=== PATIENT | male | born 1945 | race Caucasian/White ===

== ENCOUNTER 2017-12-12 23:17 | Emergency (ER) | payer MEDICARE | END 2017-12-13 01:38 | disposition home or self-care (01) | LOC: D.ER 23:17 | DX: S09.90XA Unspecified injury of head, initial encounter (principal); W01.0XXA Fall on same level from slipping, tripping and stumbling without subsequent striking against object, initial encounter; Y93.89 Activity, other specified; Y92.019 Unspecified place in single-family (private) house as the place of occurrence of the external cause; I10 Essential (primary) hypertension; S02.2XXA Fracture of nasal bones, initial encounter for closed fracture ==

== ENCOUNTER 2020-02-05 20:49 | Observation (INO) | payer OTHER ==
[~2020-02-05] VITALS: Ht 182.9 cm; Wt 92.5 kg
--- NOTE | ~2020-02-05 | EC ---
PATIENT:ELIO OLIVERA DATE OF SERVICE: 02/05/20 SEX: M MEDICAL RECORD: [id number] DATE OF : [birth year] LOCATION:D. D.211 AGE OF PATIENT: 74 ADMISSION DATE: 02/05/20 REFERRING PHYSICIAN: INTERPRETING PHYSICIAN: BE TEMPLE MD ECHOCARDIOGRAM REPORT ECHO CHARGES 4 ECHO COMPLETE Date: 02/06/20 CLINICAL DIAGNOSIS: CP ECHOCARDIOGRAPHIC MEASUREMENTS (adult normal given) AC root (d.<3.7cm) 3.4 cm LV Septum d (<1.2 cm> 0.7 cm Valve Excursion 2.0 cm LV Septum (systole) 1.1 cm Left Atria (s.<4.0cm> 4.0 cm LVPW d(<1.2cm) 1.0 cm RV (d.<2.3cm) 2.4 cm LVPW (sytole) 1.2 cm LV diastole(<5.6CM) 5.3 cm MV E-F(>70mm/sec) cm LV systole 3.8 cm LVOT Diameter 1.5 cm MV exc.(>10mm) cm Est.ejection fraction (50-75%) % DOPPLER: LVIT cm/sec A 88 cm/sec E 58 cm/sec LA cm/sec RVSP 14.8 mmHg LVOT 122 cm/sec AOP1/2T m/s Asc. Ao 130 cm/sec RVOT 88 cm/sec RA cm/sec PA 96 cm/sec AV Gradient Peak 6.8 mmHg AV Mean 4.8 mmHg AV Area 1.5 cm MV Gradient Peak 4.1 mmHg MV Mean 1.9 mmHg MV Area cm COMMENTS: Engineering Librarian: Ulysses AMARO Beater Out: 4 Dr. Temple TAPE# PACS Pericardial Effusion N DATE OF SERVICE: 02/07/2020 PROCEDURE: Transthoracic echocardiogram. FINDINGS: The left ventricle shows mild left ventricular hypertrophy with diastolic dysfunction. The patient's ejection fraction is 55%. The aortic valve is normal. Left atrium appears to be normal, but is not well demonstrated. ECHOCARDIOGRAM REPORT [id number] ELIO OLIVERA Mitral valve is grossly normal. Tricuspid valve is grossly normal. The RVSP appears to be normal. The right ventricle is normal size, shape, structure, and function. Pulmonic valve appears to be normal. TRANSINT:[id number] Voice Confirmation ID: [id number] DOCUMENT ID: [id number] BE TEMPLE MD CC: [id number] DICTATION DATE: 02/08/20 1613 DICTATING MACHINE TYPIST: 02/08/20 2344 DIS IN 02/07/20 [facility] [address] [id number]
--- NOTE | ~2020-02-05 | HEMODYNAMI ---
PATIENT:ELIO OLIVERA MEDICAL RECORD: [id number] : 47 LOCATION[facility] D.[facility] [id number] ADMISSION DATE: 02/05/20 Generatedon:02/06/20209:48 Patient name: ELIO OLIVERA Patient #: [id number] SSN: [id number] : 1945 Date of study: 02/06/2020 Page: Of Hemodynamic Procedure Report Patient Data Patient Demographics Procedure consent was obtained First Name: ELIO Gender: Male Last Name: JAROD : 1945 [facility] Initial: A Age: 74 year(s) Patient #: [id number] Race: SSN: [id number] Additional ID: [id number] Contact details [address]: [address] [place] [address] State: [place] City: [place] Zip code: [address] Admission Admission Data Admission Date: 02/05/2020 Admission Time: 21:47 Admit Source: Other Room #: D.4 Procedure Procedure Types Cath Procedure Diagnostic Procedure LHC LH w/Coronaries Sedation Charges Moderate Sedation up to 15 minutes Procedure Description Procedure Date Procedure Date: 02/06/2020 Procedure Start Time: 9:30 Procedure End Time: 9:44 Procedure Staff Name Function Roberto Carlos Romeo MD Performing Physician Jason Parrish RN Nurse Rachel Wylie RT Scrub Leslie Jasmine RT Monitor Procedure Data Cath Procedure Fluoroscopy Diagnostic fluoroscopy Total fluoroscopy Time: 2.2 time: 2.2 min min Diagnostic fluoroscopy Total fluoroscopy dose: 220 dose: 220 mGy mGy Contrast Material Contrast Material Type Amount (ml) Isovue 300 50 Entry Location Entry Primary Successful Side Size Upsize Upsize Entry Closure Rowe ccessful Closure Location (Fr) 1 (Fr) 2 (Fr) Remarks Device Remarks Radial Right 6 Fr Mechanical artery Short Compression Femoral Right 5 Fr Exoseal artery Estimated blood loss: 5 ml Diagnostic catheters Device Type Used For End Catheter Placement DIAGNOSTIC Decker 110cm 5 Multi-vessel Fr catheter ([id number]) Angiography Procedure Complications No complications Procedure Medications Medication Administration Route Dosage Oxygen etCO2 Nasal cannula 2 l/min Benadryl I.V. 50 mg Lidocaine 2% added to field 20 Heparin Flush Bag added to field 2 bags (1000units/500ml NS) 0.9% NaCl I.V. 100 ml/hr Radial Cocktail I.A. 1 syringe (Verapamil 2mg/Nitro 400mcg/Heparin 1500units) Versed I.V. 1 mg Fentanyl I.V. 50 mcg Versed I.V. 1 mg Hemodynamics Rest Heart Rate: 88 (bpm) Pressure Samples Time Site Value (mmHg) Purpose Heart Use Rate(bpm) 9:39 LV 131/7,12 Snapshot 87 Gradients Valve Time Site Site Mean SEP/DFP Peak To Heart Use 1 2 (mmHg) (sec/min) Peak Rate (mmHg) (bpm) Aortic 9:40 LV AO 87 Snapshots Pre Cath Intra NCS Post Cath Vital Signs Time Heart Resp SPO2 etCO2 NIBP (mmHg) Rhythm Pain Sedation Rate (ipm) (%) (mmHg) Status Level (bpm) 9:23:03 80 21 97 0 150/89(130) NSR 0 (11) 10(A) , No pain 9:27:21 83 16 99 34.5 152/87(129) NSR 0 (11) 10(A) , No pain 9:31:37 86 14 100 36 154/89(126) NSR 0 (11) 9(A) , No pain 9:35:53 86 17 96 32.3 135/82(104) NSR 0 (11) 9(A) , No pain 9:40:07 89 16 96 35.3 149/81(109) NSR 0 (11) 9(A) , No pain 9:44:23 82 13 97 34.5 142/85(109) NSR 0 (11) 10(A) , No pain Medications Time Medication Route Dose Verified Delivered Reason Notes Effectiveness by by 9:22:04 Oxygen etCO2 2 l/min Roberto Carlos Gomez used for Nasal St Arias Parrish RN procedure cannula 9:22:11 Benadryl I.V. 50 mg Roberto Carlos Gomez Per [facility] Arias Parrish RN physician 9:27:11 Lidocaine 2% added 20ml Roberto Carlos Azevedo for local to vial St Arias Romeo anesthetic field MD ZACARIAS 9:27:17 Heparin Flush added 2 bags Roberto Carlos Azevedo used for Bag to [facility] procedure (1000units/500ml field MD ZACARIAS NS) 9:27:26 0.9% NaCl I.V. 100 Roberto Carlos Gomez Per ml/hr St Arias Parrish RN physician 9:27:42 Versed I.V. 1 mg Roberto Carlos Gomez for sedation St Arias Parrish RN, MD 9:27:49 Fentanyl I.V. 50 mcg Roberto Carlos Gomez for sedation St Arias Parrish RN, MD 9:31:35 Radial Cocktail I.A. 1 Roberto Carlos Azevedo for (Verapamil syringe [facility] vasodilation 2mg/Nitro MD ZACARIAS 400mcg/Heparin 1500units) 9:35:10 Versed I.V. 1 mg Roberto Carlos Azevedo for sedation St Arias Romeo MD, MD Procedure Log Time Note 8:57:23 Informed consent obtained and on chart 9:06:10 Jason Parrish RN sent for patient. Start room use. 9:11:47 Admit Source: Other 9:12:07 Procedure Status Urgent Heart Cath (IP). 9:12:20 Time tracking: Regular hours (M-F 7:00 - 5:00) 9:12:28 Plan of Care:Hemodynamics will remain stable., Cardiac rhythm will remain stable., Comfort level will be maintained., Respiratory function will remain adequate., Patient/ family verbilizes understanding of procedure., Procedure tolerated without complication., Recovers from procedure without complications.. 9:12:39 Patient received from Med II to CCL 1 Alert and oriented. Tansferred to table in Supine position. 9:12:41 Warm blankets applied, and jailyn hugger turned on for patient comfort. 9:12:42 Correct patient and procedure confirmed by team. 9:12:42 ECG and BP/O2 sat monitors applied to patient. 9:21:56 Vital chart was started 9:22:04 Oxygen 2 l/min etCO2 Nasal cannula was administered by Jason Parrish RN; used for procedure; Verbal order read back and verified. 9:22:11 Benadryl 50 mg I.V. was administered by Jason Parrish RN; Per physician; Verbal order read back and verified. 9:24:49 H&P Date Dictated: 02/06/2020 New H&P dictated by physician.. 9:24:50 Pre-procedure instructions explained to patient. 9:24:51 Pre-op teaching completed and patient verbalized understanding. 9::53 Family unavailable. 9:24:55 Patient NPO since Midnight. 9::58 Is the patient allergic to Iodine/contrast media? No. 9:24:59 Was the patient premedicated? Yes 9:25:00 Is patient on blood thinner?No 9:25:01 Patient diabetic? No. 9:25:03 Previous problem with sedation/anesthesia? No ? 9:25:05 Snore? No 9:25:06 Sleep apnea? No 9:25:07 Deviated septum? No 9:25:08 Opens mouth fully? Yes 9:25:09 Sticks out tongue? Yes 9:25:16 Airway obstruction? Yes emphysema 9:25:21 Dentures? Yes in tight 9:25:25 Pre procedure: right dorsailis pedis pulse 2+ Normal; easily identifiable; not easily obliterated 9:25:27 Pre procedure: left dorsailis pedis pulse 2+ Normal; easily identifiable; not easily obliterated 9:25:30 Patient pain scale 0/10 ?. 9:25:42 IV patent on arrival in right forearm with 0.9% NaCl at O. 9:25:49 Lab results completed and on chart. 9::53 Right Radial & Right Groin area was prepped with chlora-prep and draped in sterile fashion 9:25:54 Alarms reviewed by R. N. 9::55 Sharps counted by scrub and verified by R.N. 9:25:56 Physician arrived 9::57 --------ALL STOP TIME OUT------ 9:25:58 Final Timeout: patient, procedure, and site verified with staff and physician. All members of the team are in agreement. 9:26:00 Right Radial & Right Groin site verified by team. 9:26:04 Fire Safety Assessment: A--An alcohol-based skin anteseptic being used preoperatively., C--Open oxygen or nitrous oxide is being used., D--An ESU, laser, or fiber-optic light is being used. 9:26:08 Physical assessment completed. ASA score P 2 - A patient with mild systemic disease as per Roberto Carlos Romeo MD. 9:26:23 3a) 45-59 Moderately reduced kidney function. 9:26:43 Maximum allowable contrast dose (3.7 X eGFR X 0.75)147 ml. 9:26:48 Sedation plan: IV Moderate Sedation Medication:Versed, Fentanyl 9:27:11 Lidocaine 2% 20ml vial added to field was administered by Roberto Carlos Romeo MD; for local anesthetic; Verbal order read back and verified. 9:27:17 Heparin Flush Bag (1000units/500ml NS) 2 bags added to field was administered by Roberto Carlos Romeo MD; used for procedure; Verbal order read back and verified. 9:27:26 0.9% NaCl 100 ml/hr I.V. was administered by Jason Parrish RN; Per physician; Verbal order read back and verified. 9:27:42 Versed 1 mg I.V. was administered by Jason Parrish RN; for sedation; Verbal order read back and verified. 9:27:49 Fentanyl 50 mcg I.V. was administered by Jason Parrish RN; for sedation; Verbal order read back and verified. 9:28:31 Risk of Mortality: 0.1 9:28:34 Risk of blood transfusion: 0.1 9:28:36 Risk of JANNETTE: 2.2 9:28:39 Use device set Radial Dx or PCI 9:28:40 ACIST Syringe (09909) opened to sterile field. 9:28:41 Medline Cath Pack ([id number]) opened to sterile field. 9:28:41 Bag Decanter () opened to sterile field. 9:28:41 ACIST Hand Control (62976) opened to sterile field. 9:28:42 ACIST Manifold (64364) opened to sterile field. 9:28:42 Tegaderm 4 x 4 (1626W) opened to sterile field. 9:28:43 MBrace Wrist Support ([id number]) opened to sterile field. 9:28:44 EMERALD Guide Wire (589-999) opened to sterile field. 9:28:44 SHEATH 6FR RAIN (9268650) opened to sterile field. 9:29:25 IV Extension Set opened to sterile field. 9:30:02 Procedure started. 9:30:02 Full Disclosure recording started 9:30:05 Local anesthetic to right radial artery with Lidocaine 2% by Roberto Carlos Romeo MD.INITIAL ACCESS ONLY 9:30:21 A 6 Fr Short sheath was inserted into the Right Radial artery 9:30:34 Zero performed for pressure channel P1 9:31:35 Radial Cocktail (Verapamil 2mg/Nitro 400mcg/Heparin 1500units) 1 syringe I.A. was administered by Roberto Carlos Romeo MD; for vasodilation; Verbal order read back and verified. 9:31:49 A DIAGNOSTIC Decker 110cm 5 Fr catheter (517985) was advanced over the wire and used for Multi-vessel Angiography. 9:33:47 Catheter removed. 9:34:10 patient has radial loop; preparing for femoral access 9:34:44 DIAGNOSTIC Multipack 5Fr catheter set (RE0683) opened to sterile field. 9:34:44 SHEATH 5FR [place] (RYH282) opened to sterile field. 9:34:57 Local anesthetic to right femoral artery with Lidocaine 2% by Roberto Carlos Romeo MD.ADDITIONAL ACCESS 9:35:10 Versed 1 mg I.V. was administered by Roberto Carlos Romeo MD; for sedation; Verbal order read back and verified. 9:35:13 A 5 Fr sheath was inserted into the Right Femoral artery 9:35:19 Baseline sample Acquired. 9:35:38 5 Fr jl 4 guide catheter was inserted over the wire 9:36:25 LCA angiography performed. 9:36:28 Injector settings: Ml/sec: 3, Volume: 6, 9:37:19 Catheter removed. 9:37:38 5 Fr 3drc guide catheter was inserted over the wire 9:38:52 RCA angiography performed. 9:38:56 Injector settings: Ml/sec: 3, Volume: 6, 9:38:58 Catheter removed. 9:39:04 5 Fr pigtail guide catheter was inserted over the wire 9:39:48 LV hemodynamics recorded. 9:39:49 LV gram done using PETE 9:40:04 EF : 55 % 9:40:08 Catheter removed. 9:40:21 ZEPHYR REGULAR TR BAND (162084) opened to sterile field. 9:40:28 EXOSEAL 5Fr (EX500) opened to sterile field. 9:41:28 Sheath removed intact; hemostasis achieved with Mechanical Compression to the Right Radial artery. 9:41:37 Sheath removed intact; hemostasis achieved with Exoseal to the Right Femoral artery. 9:41:40 Procedure ended.(Physican Out) 9:42:17 Fluoroscopy time 02.20 minutes. 9:42:24 Fluoroscopy dose: 220 mGy 9:42:24 Flurop Dose total: 220 9:42:31 Dose Area Product 37842 mGy/cm. 9:42:35 Contrast amount:Isovue 300 50ml. 9:42:37 Maximum allowable dose exceeded? No. 9:42:38 Sharps counted by scrub and verified by R.N. 9:42:40 Troutman band inflated with 10cc of air. 9:42:42 Insertion/operative site no bleeding no hematoma. 9:42:47 Post right radial artery:stable 9:42:52 Post-op/insertion site Right Femoral artery dressed using a 4 x 4 and Tegaderm. 9:42:59 Post Procedure Pulses reassessed and unchanged 9:43:03 Post procedure rhythm: unchanged. 9:43:05 Estimated blood loss: 5 ml 9:43:07 Post procedure instruction explained to patient.Patient verbalizes understanding. 9:43:08 Patient needs reinforcement of post procedure teaching. 9:43:33 Procedure type changed to Cath procedure, Diagnostic procedure, LHC, [facility] w/Coronaries, Sedation Charges, Moderate Sedation up to 15 minutes 9:43:34 Procedure and supply charges have been captured, reviewed, submitted and are correct. 9:43:37 Procedure Complication : No complications 9:43:41 Vital chart was stopped 9:43:50 [facility] Findings: mild to moderate CAD (<70%) 9:43:51 Operative report dictated upon procedure completion. 9:43:51 See physician's report for complete and final results. 9:43:55 Report given to [facility]. 9:43:58 Patient transfered to [facility] with Stretcher. 9:44:00 Procedure ended. 9:44:01 Full Disclosure recording stopped 9:44:05 End room use (Document Last) 9:48:22 End room use (Document Last) 9:48:36 End room use (Document Last) Device Usage Item Name Manufacture Quantity Catalog Hospital Part Current Minima l Lot# / Number Charge Number Stock Stock Serial# Code ACIST Acist 1 80819 770627 688002 432619 20 Syringe TidalScale (25236) [employer] Medline Medline 1 [id number] 336912 20764 581383 5 Cath Pack ([id number]) Bag Microtek 1 555604 25321 621764 5 Decanter Medical Inc. () ACIST Hand Acist 1 44494 052576 089124 391023 5 Control Medical (81724) Systems Inc ACIST Acist 1 41173 387467 786490 383776 5 Manifold Medical (03299) Systems Inc Tegaderm 4 3M 1 1626W 065042 101670 136212 5 x 4 (1626W) MBrace Advanced 1 140-0250-00 786249 66232 667770 5 Wrist Vascular Support Dynamics ([id number]) EMERALD Cardinal 1 502-163 314291 206989 872764 5 Guide Wire Health (647-455) SHEATH 6FR Cardinal 1 4499319 892837 3182974 926028 5 [facility] (4046074) IV Hospira 1 12339-93 500043 28622 693313 5 Extension Set DIAGNOSTIC Terumo 1 40-1711 459437 168809 561471 5 Decker 110cm 5 Fr catheter (050910) DIAGNOSTIC Cardinal 1 UV5979 779870 60169 336830 30 Multipack Health 5Fr catheter set (EB8666) SHEATH 5FR Terumo 1 BVQ070 499084 043976 061193 5 [place] (YWL930) ZEPHYR Cardinal 1 268853 544977 7572335 003449 5 REGULAR TR Health BAND (434795) EXOSEAL 5Fr Cardinal 1 EX500 781754 394756 745390 10 (EX500) Health Signature Audit Leroy Stage Time Signature Unsigned Intra-Procedure 02/06/2020 Leslie Jasmine 9:48:22 AM RT(R) Intra-Procedure 02/06/2020 Jason Parrish RN 9:48:36 AM Intra-Procedure 02/06/2020 Roberto Carlos Sapp 9:48:56 AM Arias ZACARIAS [facility] [address] [id number]
[2020-02-05] MEDS ORDERED: NORVASC5 MG PO (20:58)
[2020-02-05] MEDS ORDERED: BACLOFEN10 MG PO (20:58)
[2020-02-05] MEDS ORDERED: LISINOPRIL10 MG PO (20:58)
[2020-02-05 21:05] VITALS: BP 112/56
[2020-02-05] MEDS ORDERED: ASPIRIN81 MG PO (21:09)
[2020-02-05 21:10] LABS: BASOPHILS 0.2 % (0-2); EOSINOPHILS 2.8 % (0-7); HEMATOCRIT 36.9 % (42.0-54.0); HEMOGLOBIN 12.6 g/dL (13.5-17.5); IMMATURE GRANULOCYTES 0.2 % (0-5); LYMPHOCYTES 40.8 % (15-50); MCH 35.6 pg (26.0-34.0); MCHC 34.1 g/dL (31.0-37.0); MCV 104.2 fL (80.0-100.0); MEAN PLATELET VOLUME 9.8 fL (7.4-10.4); MONOCYTES 15.8 % (2-11); NEUTROPHILS 40.2 % (40-80); PLATELET COUNT 197 10x3/uL (130-400); RBC 3.54 10x6/uL (4.20-6.10); RDW 13.4 % (11.5-14.5); WBC 4.6 10x3/uL (4.8-10.8)
[2020-02-05 21:18] LABS: APTT 24.4 SECONDS (22.8-39.4); CALC OSMOLALITY 279 mosm/kg (275-300); CALCIUM 8.8 mg/dL (8.5-10.1); CHLORIDE - SERUM 103 mmol/L (98-107); CREATININE - SERUM 1.7 mg/dL (0.6-1.3); GLUCOSE 123 mg/dL (74-106); INR 0.88 (0.85-1.17); POTASSIUM - SERUM 3.8 mmol/L (3.5-5.1); PROTIME 11.9 SECONDS (11.6-15.0); SODIUM 139 mmol/L (136-145); UREA NITROGEN 15 mg/dL (7-18); eGFR NON AFRICAN AMERICAN 42 mL/min (90-120)
[2020-02-05 21:21] LABS: BILIRUBIN NEGATIVE (NEGATIVE); GLUCOSE NEGATIVE (NEGATIVE); KETONE NEGATIVE (NEGATIVE); NITRITE NEGATIVE (NEGATIVE); SPECIFIC GRAVITY 1.005 (1.005-1.020); UROBILINOGEN 4 mg/dL (NORMAL)
[2020-02-05 21:44] LABS: ALBUMIN 3.5 g/dL (3.4-5.0); ALKALINE PHOSPHATASE 63 U/L (30-120); ALT (SGPT) 73 U/L (10-68); BILIRUBIN - TOTAL 0.38 mg/dL (0.2-1.3); CREATINE KINASE 235 UL (21-232); LIPASE 215 U/L (73-393); MAGNESIUM - SERUM 1.9 mg/dL (1.8-2.4); PRO BNP 190 pg/mL (0-125); THYROID STIMULATING HORMONE 7.77 uIU/mL (0.36-3.74)
[2020-02-05 21:45] LABS: TROPONIN-I < 0.017 ng/mL (0.000-0.060)
[2020-02-05 23:32] VITALS: BP 133/69; BMI 27.7
--- NOTE | 2020-02-05 23:44 | NUR ---
PATIENT TO THE FLOOR TRANSFERED TO BED WITH LITTLE ASSISTANCE. DAUGHTER AT BEDSIDE. PATIENT STATES ONLY HAS CHEST PAIN WHEN BREATHING IN DEEPLY, RATES PAIN 5 OUT OF 10. CALL LIGHT WITHIN REACH AND BED IN LOWEST LOCKED POSITION. PATIENT DOES NOT WANT HOSPITAL GOWN.
--- NOTE | 2020-02-06 00:42 | NUR ---
TALKED WITH SANKET, PATIENT IS TO START Mvi BAG AT 0900. PATIENT AND DAUGHTER NO WORRIED ABOUT DT'S, PATIENT HAS HAD A DRINK TODAY SO SANKET WOULD LIKE IT STARTED IN THE MORNING DUR TO PATIENT BEING A EVERYDAY 6 BEERS A DAY DRINKER, ORDER CHANGED WITH [facility] WILL FOLLOW KELECHI.
--- NOTE | 2020-02-06 01:45 | NUR ---
UA COLLECTED AND TAKEN TO THE LAB. PATIENT USED CALL LIGHT NURSE REQUESTED. CALL LIGHT WITHIN REACH AND BED IN LOWEST LOCKED POSITON.
[2020-02-06 02:31] LABS: UDS - AMPHET NEGATIVE QUAL (NEGATIVE); UDS - BARB NEGATIVE QUAL (NEGATIVE); UDS - BENZO POSITIVE QUAL (NEGATIVE); UDS - COCAINE NEGATIVE QUAL (NEGATIVE); UDS - OPIATE NEGATIVE QUAL (NEGATIVE); UDS - PCP NEGATIVE QUAL (NEGATIVE); UDS - THC NEGATIVE QUAL (NEGATIVE)
[2020-02-06 04:00] VITALS: BP 112/63
[2020-02-06 07:27] LABS: CALC OSMOLALITY 280 mosm/kg (275-300); CALCIUM 8.4 mg/dL (8.5-10.1); CARBON DIOXIDE 30.8 mmol/L (21.0-32.0); CHLORIDE - SERUM 104 mmol/L (98-107); CREATININE - SERUM 1.4 mg/dL (0.6-1.3); GLUCOSE 98 mg/dL (74-106); SODIUM 141 mmol/L (136-145); TROPONIN-I < 0.017 ng/mL (0.000-0.060); UREA NITROGEN 12 mg/dL (7-18); eGFR NON AFRICAN AMERICAN 53 mL/min (90-120)
[2020-02-06 08:00] VITALS: BP 143/71
[2020-02-06 08:06] LABS: BASOPHILS 0 % (0-2); EOSINOPHILS 3.1 % (0-7); HEMOGLOBIN 12.8 g/dL (13.5-17.5); IMMATURE GRANULOCYTES 0.2 % (0-5); LYMPHOCYTES 38.2 % (15-50); MCH 35.3 pg (26.0-34.0); MCHC 33.7 g/dL (31.0-37.0); MCV 104.7 fL (80.0-100.0); MEAN PLATELET VOLUME 10.1 fL (7.4-10.4); MONOCYTES 14.4 % (2-11); NEUTROPHILS 44.1 % (40-80); PLATELET COUNT 201 10x3/uL (130-400); RBC 3.63 10x6/uL (4.20-6.10); RDW 13.6 % (11.5-14.5); WBC 4.2 10x3/uL (4.8-10.8)
--- NOTE | 2020-02-06 09:10 | NUR ---
CONSWENTS SIGNED. TO CATHLAQB BY BED.
[2020-02-06 09:12] LABS: CHOL - HDL RATIO 2.2 ratio (2.3-4.9)
--- NOTE | 2020-02-06 10:15 | NUR ---
BACK FROM BLANKET CUTTING MACHINE OPERATOR. VS WNL. RIGHT GROIN STABLE WITHOUT BLEEDING OR HEMATOMA NOTED. WILL MONITOR.
[2020-02-06 11:00] VITALS: BP 133/80
--- NOTE | 2020-02-06 12:20 | NUR ---
BED REST UP. GROIN STABLE.
[2020-02-06 13:22] VITALS: Ht 182.9 cm; Wt 92.5 kg
--- NOTE | 2020-02-06 13:26 | NUR ---
TR BAND DCD. WITHOUT BLEEDING OR HEMATOMA NOTED. ECHO COMPLETED AT BS.
[2020-02-06 15:00] VITALS: BP 135/69
--- NOTE | 2020-02-06 15:52 | MORECARE ---
CASE MANAGEMENT DISCHARGE SUMMARY PATIENT: ELIO OLIVERA UNIT: [id number] ADM DATE: 02/05/20 AGE: 74 : 46 SEX: M ROOM/BED: D.2114 AUTHOR: ARTURO ROLLINS PHYSICIAN: REFERRING PHYSICIAN: MAINE DOUGHERTY MD DATE OF SERVICE: 02/06/20 Discharge Plan Patient Name: ELIO OLIVERA Facility: [facility]:[place] : 1945 Planned Disposition: Anticipated Discharge Date: Discharge Date: Expected LOS: Initial Reviewer: [email or web address] Initial Review Date: 02/06/2020 Generated: 02/06/20 4:52 pm External Providers External Provider: [employer] Next Contact Date: Service Request Date: Service Type: Resolution: Reviewer: Comments: Patient Name: ELIO OLIVERA Page 72301 at 1552 All edits/amendments must be made on the electronic document DICTATION DATE: 02/06/20 1552 CLIENT CARE CONSULTANT: NUNU 02/06/20 1552 RPT#: [id number] DC DATE: STATUS: ADM IN [facility] [address] [place] [address] END OF REPORT
--- NOTE | 2020-02-06 19:00 | NUR ---
RECEIVED BEDSIDE REPORT. PATIENT IS ALERT AND ORIENTED, RESTING COMFORTABLY IN BED. RESPIRATIONS ARE EVEN AND UNLABORED. NO S/S OF DISTRESS. NO C/O PAIN. CALL LIGHT WITHIN REACH. WILL CPOC.
[2020-02-06 20:54] VITALS: BP 155/62
--- NOTE | 2020-02-06 23:00 | NUR ---
PATIENT RESTING COMFORTABLY IN BED. RESPIRATIONS ARE EVEN AND UNLABORED. NO S/S OF DISTRESS. NO C/O PAIN. CALL LIGHT WITHIN REACH. WILL CPOC.
[2020-02-07 04:46] VITALS: BP 134/81
[2020-02-07 05:11] LABS: BASOPHILS 0.2 % (0-2); HEMATOCRIT 36.9 % (42.0-54.0); HEMOGLOBIN 12.3 g/dL (13.5-17.5); IMMATURE GRANULOCYTES 0.2 % (0-5); MCH 34.7 pg (26.0-34.0); MCHC 33.3 g/dL (31.0-37.0); MCV 104.2 fL (80.0-100.0); MEAN PLATELET VOLUME 9.7 fL (7.4-10.4); MONOCYTES 14.2 % (2-11); NEUTROPHILS 46.4 % (40-80); PLATELET COUNT 180 10x3/uL (130-400); RBC 3.54 10x6/uL (4.20-6.10); RDW 13.4 % (11.5-14.5); WBC 4.5 10x3/uL (4.8-10.8)
[2020-02-07 05:30] LABS: ANION GAP 9.1 mmol/L (8-16); BILIRUBIN - TOTAL 0.39 mg/dL (0.2-1.3); CALCIUM 8.5 mg/dL (8.5-10.1); CARBON DIOXIDE 26.7 mmol/L (21.0-32.0); CREATININE - SERUM 1.3 mg/dL (0.6-1.3); MAGNESIUM - SERUM 1.9 mg/dL (1.8-2.4); POTASSIUM - SERUM 3.8 mmol/L (3.5-5.1); PROTEIN - SERUM 6.3 g/dL (6.4-8.2)
--- NOTE | 2020-02-07 05:40 | NUR ---
PATIENT REFUSED TO TAKE MEDICATIONS THIS AM. PATIENT STATED THAT HE WAS CHECKING HIMSELF OUT. PATIENT REFUSED TO WEAR TELEMETRY AND PULLED OUT IV.
[2020-02-07 07:14] LABS: HEPATITIS C ANTIBODY >11.0 S/CO RAT (0.0-0.9)
[2020-02-07 08:13] LABS: T3 - FREE 3.2 pg/mL (2.0-4.4)
[2020-02-07] MEDS ORDERED: SYNTHROID25 MCG PO (08:31)
--- NOTE | 2020-02-07 09:49 | NUR ---
DISCHARGE PAPERWORK SIGNED, PT REFUSED TO REVIEW AND ASK QUESTIONS. NO IV ACCESS TO DC. ESCORTED OUT VIA WHEELCHAIR.
--- NOTE | 2020-02-07 15:05 | MORECARE ---
CASE MANAGEMENT DISCHARGE SUMMARY PATIENT: ELIO MERCEDES UNIT: [id number] ADM DATE: 02/05/20 AGE: 74 : 46 SEX: M ROOM/BED: D.2114 AUTHOR: ARTURO ROLLINS PHYSICIAN: REFERRING PHYSICIAN: MAINE DOUGHERTY MD DATE OF SERVICE: 02/07/20 Discharge Plan Patient Name: ELIO MERCEDES [facility] : 1945 Planned Disposition: Anticipated Discharge Date: Discharge Date: 02/07/2020 Expected LOS: Initial Reviewer: [email or web address] Initial Review Date: 02/06/2020 Generated: 02/07/20 4:05 pm Coverage Notice Reviewer: [email or web address] Basil Uriostegui Notice Issued Date-Time: 02/06/2020 16:44 Notice Type: Medicare Outpatient Observation Notice Notice Delivered To: Patient Relationship to Patient: Self Daycare Director Name: Elio Mercedes Delivery Method: HAND - Hand Delivered Linda Days: Prior Verbal Notification: Recipient Understood Notice: Yes Recipient Signature: Yes Med Rec Note Co-signed by Attending: Coverage Notice Comment: LOCO signed/given to patient. Original to chart. Last DP export: 02/06/20 2:52 p Patient Name: ELIO MERCEDES Page 64400 at 1505 All edits/amendments must be made on the electronic document DICTATION DATE: 02/07/20 1505 MELTING FURNACE SKIMMER: NUNU 02/07/20 1505 RPT#: [id number] DC DATE:02/07/20 STATUS: DIS IN [facility] [address] [place] [address] END OF REPORT
[2020-02-07 15:10] LABS: ALPHA FETOPROTEIN -(TUMOR MRK) 2.7 ng/mL (0.0-8.3)
--- NOTE | 2020-02-09 07:56 | CN ---
PATIENT NAME:ELIO OLIVERA MEDICAL RECORD: [id number] : 47 LOCATION:D. D.2114 ADMIT DATE: 02/05/20 ACCOUNT: [id number] CONSULTING PHYSICIAN: SHAZIA PEDERSON MD REFERRING PHYSICIAN: MAINE DOUGHERTY MD DATE OF CONSULTATION: 02/06/2020 HISTORY OF PRESENT ILLNESS: A 74-year-old gentleman with a history of coronary artery disease, previously followed by Dr. Matthews, last intervention by his report was approximately 7 years ago, doing fairly well until the last 2-3 weeks with marked chest tightness, pressure with exertion, lower extremity edema, progression to the point of rest symptomology on day of admission. He is admitted for acute coronary syndrome/unstable angina. PAST MEDICAL HISTORY: Includes; 1. History of hypertension. 2. Hyperlipidemia, intolerant to statins secondary to underlying hepatitis C. 3. Coronary artery disease as described above. ALLERGIES: NO ALLERGIES, INTOLERANT TO STATINS DESCRIBED ABOVE. MEDICATIONS: Include baclofen 30 mg p.o. t.i.d., lisinopril 10 mg p.o. daily, amlodipine 5 mg p.o. daily, aspirin 81 every day. SOCIAL HISTORY: Nonsmoker. Drinks occasional social drink. No set exercise program. Easily able to take care of all his ADLs. REVIEW OF SYSTEMS: The patient reports easy bruising but reports no swollen glands. The patient reports no fever, no night sweats, no significant weight gain, no significant weight loss. No significant exercise tolerance. The patient reports no dry eyes, no irritation, no vision change. Patient reports no difficulty hearing and no ear pain. Patient reports no frequent nose bleeds or nose and sinus problems. Patient reports on arm pain on exertion. No shortness of breath while lying down. No history of heart murmur. Patient reports no cough, no wheezing or coughing up blood. Patient reports no abdominal pain, no vomiting. Normal appetite. No diarrhea and not vomiting blood. No nausea and no constipation. Patient reports no incontinence. No difficulty urinating. No hematuria. No increased frequency. Patient reports no muscle aches. No weakness, no arthralgias, no back pain. No swelling of the extremities. Patient reports no abnormal mole, no jaundice, no rashes. Reports no loss of consciousness. No weakness and no numbness. No seizures, dizziness, or headaches. The patient reports no depression, no sleep disturbance, feeling safe in a relationship and no alcohol abuse. Patient reports on fatigue. Reports no runny nose or sinus pressure. No itching, no hives, and no frequent sneezing. PHYSICAL EXAMINATION: GENERAL: Pleasant, no acute distress, appears stated age. VITAL SIGNS: Blood pressure 143/71, pulse 81 and regular. HEENT: Normocephalic, atraumatic. NECK: No JVD or bruit. HEART: Regular, II/ systolic ejection murmur. LUNGS: Good air excursion. ABDOMEN: Soft, nontender. EXTREMITIES: Pulses 1+ with 1+ edema. CONSULT REPORT [id number] ELIO OLIVERA IMPRESSION: Acute coronary syndrome, known underlying coronary disease. PLAN: Angiography, intervention based on the above. TRANSINT:[id number] Voice Confirmation ID: [id number] DOCUMENT ID: [id number] SHAZIA PEDERSON MD at 0756 CC: [id number] DICTATION DATE: 02/06/20924 SPRING ENCASER: 02/06/20 1038 DIS IN 02/07/[id number] [place] [address]
--- NOTE | 2020-02-09 07:56 | OP ---
PATIENT NAME: ELIO OLIVERA MEDICAL RECORD: [id number] :47 LOCATION:D.M2 D.2114 ADMISSION DATE:02/05/20 SURGEON: SHAZIA PEDERSON MD DATE OF OPERATION: 02/06/2020 PROCEDURE: Left heart catheterization, selective coronary angiography, right femoral artery approach. Please note no radial secondary to a radial loop. CATHETERS: A 5-Danish sheath, 5/4 left and right Nohemi. FINDINGS: Left ventriculography in 30-degree PETE view, normal wall motion, normal systolic function. CORONARY ANATOMY: LEFT MAIN: Left main is free of disease. LAD: LAD is a large vessel, wrapped around the apex, free of disease. CIRCUMFLEX: Small circumflex free of disease. RIGHT CORONARY ARTERY: Dominant right, free of disease. IMPRESSION: Normal left ventricular function, normal coronary anatomy. TRANSINT:[id number] Voice Confirmation ID: [id number] DOCUMENT ID: [id number] SHAZIA PEDERSON MD at [id number] CC: [id number] DICTATION DATE: 02/06/20 0951 [employer] SUPERVISOR: 02/06/20 1128 DIS IN 02/07/20 [facility] [address] [place] [address]
== END 2020-02-07 09:51 | disposition home or self-care (01) ==
LOC: D.ER 20:49 → D.M2 21:47 → OBSVTIME 21:47 → D.SDCHOLD 02-06 09:20 → D.M2 02-06 09:20
PROVIDERS: Family Medicine; Internal Medicine Interventional Cardiology; ADMIT Emergency Medicine; ATTEND Emergency Medicine
DX: I25.110 Atherosclerotic heart disease of native coronary artery with unstable angina pectoris (principal); I10 Essential (primary) hypertension; K21.9 Gastro-esophageal reflux disease without esophagitis; D72.819 Decreased white blood cell count, unspecified; D53.9 Nutritional anemia, unspecified; N17.9 Acute kidney failure, unspecified; E03.9 Hypothyroidism, unspecified; R16.0 Hepatomegaly, not elsewhere classified